=== PATIENT | male | born 2000 | race Caucasian/White ===

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

== ENCOUNTER 2022-08-10 16:59 | Outpatient (CLI) | payer OTHER, SELFPAY ==
[2022-08-13 10:00] LABS: Lyme Ab w Rflx to Lyme Confirm Negative (Negative)
[2022-08-13 11:34] LABS: EBNA IgG Negative (Negative); EBV Interpretation (See Note); VCA IgG Negative (Negative); VCA IgM Negative (Negative)
== END 2022-08-10 17:00 | disposition home or self-care (01) ==
LOC: LBO 16:59
PROVIDERS: Visit Provider Nurse Practitioner Pediatrics
DX: G51.0 Bell's palsy (principal)
CPT/HCPCS: 36415; 86618; 86664; 86665